=== PATIENT | male | born 1960 | race Caucasian/White ===

== ENCOUNTER 2016-07-10 07:00 | Emergency (ER) | payer OTHER, MEDICARE ==
[~2016-07-10] VITALS: Ht 177.8 cm; Wt 85.7 kg
[2016-07-10] MEDS ORDERED: CLONAZEPAM1 M2 PO (07:28)
--- NOTE | 2016-07-10 08:01 | ED ANKLE/FOOT INJURY COMPLAINT ---
History of Present Illness General Chief Complaint: Foot or Ankle Injury Stated Complaint: RIGHT FOOT SWOLLEN AND PAIN Source: patient Exam Limitations: no limitations Vital Signs & Intake/Output Vital Signs & Intake/Output Vital Signs Date Time Temp Pulse Resp B/P B/P Pulse O2 O2 Flow FiO2 Mean Ox Delivery Rate 07/10 0712 98.3 94 15 116/74 100 Room Air Allergies Coded Allergies: No Known Allergies (07/10/16) Reconcile Medications Clonazepam 1 MG TABLET 1 TAB PO BIDP PRN ANXIETY (Reported) Triage Note: PT TO ED FOR EVAL OF R BIG TOE PAIN X 1 MONTH. Triage Nurses Notes Reviewed? yes Occurred: 2-3 weeks ago Duration: week(s):, continues in ED Severity: moderate Pain/Injury Location: Right: Foot. HPI: Patient presents for evaluation of right foot pain and swelling that began gradually about 2 weeks ago. Patient states it began in the right big toe and then traveled to the ball of the foot and became more diffuse. He noticed swelling over that time. As well. He states he gets a lightninglike pain through the foot that has been constant and severe. The pain worsens with walking. Patient denies any known trauma or excessive ambulation. Past History Travel History Traveled to [place] past 21 day No Medical History Any Pertinent Medical History? see below for history Neurological: NONE EENT: NONE Cardiovascular: NONE Respiratory: NONE Gastrointestinal: NONE Hepatic: NONE Renal: NONE Musculoskeletal: NONE Psychiatric: anxiety, depression, OCD Endocrine: NONE Blood Disorders: NONE Cancer(s): NONE Surgical History Surgical History: non-contributory Psychosocial History What is your primary language [place] Tobacco Use: Never used ETOH Use: denies use Illicit Drug Use: denies illicit drug use Family History Hx Contributory? No Review of Systems Review of Systems Constitutional: Reports: no symptoms. EENTM: Reports: no symptoms. Respiratory: Reports: no symptoms. Cardiovascular: Reports: no symptoms. GI: Reports: no symptoms. Genitourinary: Reports: no symptoms. Musculoskeletal: Reports: see HPI. Skin: Reports: no symptoms. Neurological/Psychological: Reports: no symptoms. Hematologic/Endocrine: Reports: no symptoms. Immunologic/Allergic: Reports: no symptoms. All Other Systems: Reviewed and Negative Physical Exam Physical Exam Leg/Knee/Thigh Left: see below Comments: Gen.: Well-nourished, well-developed, no acute respiratory distress. Head: Normocephalic, atraumatic. Eyes: Normal inspection bilaterally Ears: Normal inspection bilaterally Nose: Normal inspection, nasal cannula in place Throat/mouth : Moist mucosa Neck: Supple, full range of motion, no goiter Heart: Regular rate and rhythm Lungs: Quiet respirations Back: Normal range of motion Extremities: Right foot: Diffuse dorsal swelling with tenderness, no erythema or warmth, normal sensation to light touch, good capillary refill to all toes. Right ankle: Nontender/normal exam. Neurologic: Cranial nerves grossly intact, speech is clear Skin: warm and dry Psychiatric: Calm, cooperative, no apparent delusions or hallucinations Progress Differential Diagnosis: arterial insufficiency, cellulitis, gout, fracture, dislocation, sprain Plan of Care: Orders Procedure Date/time Status XRY-FOOT COMPLETE, RIGHT 07/11 799 Active Diagnostic Imaging: Discussed w/RAD: Radiology Read. Radiology Impression: PATIENT: NOREEN MACHUCA PRESENT AGE: 56 PATIENT ACCOUNT NO: [id number] : 61 LOCATION: [facility] ORDERING PHYSICIAN: MATT NARVAEZ MD SERVICE DATE: 07/10/16 EXAM TYPE: RAD - XRY-FOOT COMPLETE, R EXAMINATION: XR FOOT, RIGHT CLINICAL INFORMATION: Swelling and tenderness. COMPARISON: None TECHNIQUE: AP, lateral, and oblique views of the right foot. FINDINGS: Bone mineral density is maintained without evidence of fracture or dislocation. No focal osseous lesions are seen. There are mild degenerative changes in the first MTP joint. There is mild circumferential soft tissue prominence. IMPRESSION: No fracture or dislocation. 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 <Electronically signed in Other Vendor System> SIGNED BY: EDNA MORRIS MD 07/10/16823 Departure Departure Disposition: HOME OR SELF CARE Condition: Stable Clinical Impression Primary Impression: Foot swelling Referrals: JEANNE MENDEZ,ANNE-MARIE HUGHES MD,VERÓNICA Hector (PCP/Family) Additional Instructions: Elevate your foot and consider an [place] wrap or other compressive stocking to help with the swelling. Diclofenac as prescribed for pain or swelling. Follow-up with either Dr. Huerta (foot doctor) or your primary care physician in one week for reevaluation. Return if any concerns or sudden worsening. Please note that there might be incidental findings in your evaluation that are unrelated to the current emergency department visit. Please notify your primary care doctor about this emergency department visit in order to obtain and review all of the testing performed so that these incidental findings can be monitored as needed. If you had an x-ray performed, please understand that some fractures may not be seen on the initial set of x-rays. If your symptoms persist you might need a repeat set of x-rays to check for such a fracture. If you had a laceration evaluated, please understand that foreign bodies such as glass or wood may not be visible to the naked eye or on plain x-rays. If the wound becomes red, swollen, increasingly more painful or if there is any drainage from the wound, please have it reevaluated by a physician for the possibility of a retained foreign body. Thank you for choosing the [facility] Emergency Department for your care. It was a pleasure to serve you today. Matt Narvaez M.D. [facility] Departure Forms: Customer Survey General Discharge Information Prescriptions: Current Visit Scripts Diclofenac Sodium 1 TAB PO BID PRN PAIN #14 TAB
--- NOTE | 2016-07-10 08:24 | RADIOLOGY REPORT ---
EXAMINATION: XR FOOT, RIGHT CLINICAL INFORMATION: Swelling and tenderness. COMPARISON: None TECHNIQUE: AP, lateral, and oblique views of the right foot. FINDINGS: Bone mineral density is maintained without evidence of fracture or dislocation. No focal osseous lesions are seen. There are mild degenerative changes in the first MTP joint. There is mild circumferential soft tissue prominence. IMPRESSION: No fracture or dislocation.
[2016-07-10] MEDS ORDERED: DICLOFENAC SODI75 M2 PO (08:52)
[2016-07-10 08:54] VITALS: BP 108/58
== END 2016-07-10 08:57 ==
LOC: ERH 07:00
DX: M79.89 Other specified soft tissue disorders (principal)
CPT/HCPCS: 73630-RT